=== PATIENT | male | born 1995 | race Caucasian/White ===

== ENCOUNTER 2017-04-27 13:22 | Emergency (ER) | payer BC ==
[~2017-04-27] VITALS: Ht 157.5 cm; Wt 70.0 kg
[2017-04-27 13:24] VITALS: Ht 157.5 cm; Wt 70.0 kg
[2017-04-27] MEDS ORDERED: AMO500 PO (13:37)
[2017-04-27] MEDS ORDERED: TRAM50TA2 PO (13:37)
--- NOTE | 2017-04-27 13:40 | ERD ---
ER Documentation Chief Complaint Date/Time DATE: 04/27/17 TIME: 13:38 Chief Complaint tooth pain x 2 days HPI This patient is a 21-year-old male who presents with dental pain in the front lower teeth. Denies any trauma. No fever. He has not seen a dentist because he states his dentist is in [place]. No difficulty eating drinking or swallowing. Pain is 8 out of 10. ROS All systems reviewed and are negative except as per history of present illness. Medications Home Meds Active Scripts Tramadol HCl (Tramadol HCl) 50 Mg Tablet, 50 MG PO Q6 Y for PAIN, #20 TAB Prov:AZIZA SHEPHERD PA-C 04/27/17 Amoxicillin* (Amoxicillin*) 500 Mg Cap, 500 MG PO BID, #20 CAP Prov:AZIZA SHEPHERD PA-C 04/27/17 FmHx Family History: No diabetes Physical Exam Vitals Vital Signs Date Time Temp Pulse Resp B/P Pulse Ox O2 Delivery O2 Flow Rate FiO2 04/27/17 13:24 98.1 96 18 131/88 99 Physical Exam INITIAL VITAL SIGNS: Reviewed by me GENERAL: Awake, alert and oriented x 4, well appearing, nontoxic, speaking in full sentences. No acute distress HEAD: Atraumatic EYES: EOMI. PERRL. THROAT: No tonilar erythema or edema. No exudates. Uvula midline. No kissing tonsils. NECK: Supple. No masses. Full range of motion. No meningismus. No midline tenderness. RESPIRATORY: Clear to auscultation bilaterally. Symmetric chest wall rise. No wheezing or rales. No accessory muscle use. CV: Regular rate and rhythm. No murmurs, rubs, or gallops. Procedures/MDM Patient has dental pain. Exam is normal and there was no evidence of peritonsillar abscess or any other oral infection. He was given a prescription for amoxicillin and tramadol for pain as well as a referral to dental clinic. Patient counseled regarding my diagnostic impression and care plan. Prior to discharge all questions answered. Pt agrees with treatment plan and understands strict return precautions. Pt is instructed to follow up with primary care provider within 24-48 hours. Precautionary instructions provided including instructions to return to the ER if not improving or for any worsening or changing symptoms or concerns. Departure Diagnosis: Primary Impression: Pain, dental Condition: Stable Patient Instructions: Dental Pain Referrals: [facility] ([facility] walk in [facility]) Additional Instructions: Call your primary care doctor TOMORROW for an appointment during the next 1-2 days.See the doctor sooner or return here if your condition worsens before your appointment time. AZIZA SHEPHERD PA-C Apr 27, 2017 13:40
== END 2017-04-27 14:18 | disposition home or self-care (01) ==
LOC: FTE 13:22
DX: K08.89 Other specified disorders of teeth and supporting structures (principal)
CPT/HCPCS: 99284

== ENCOUNTER 2017-08-12 06:22 | Emergency (ER) | payer BC ==
[~2017-08-12] VITALS: Ht 177.8 cm; Wt 68.0 kg
[~2017-08-12 06:22] MED LIST: AMOX500C2 PO; TRAM50TA2 PO
[2017-08-12 06:30] VITALS: Ht 177.8 cm; Wt 68.0 kg
[2017-08-12] MEDS ORDERED: SOD CHLORIDE 0.9% 1,000 ML IV STA (06:50)
--- NOTE | 2017-08-12 07:29 | RADRPT ---
PROCEDURE: XR Chest. TECHNIQUE: Single frontal radiograph. CLINICAL INDICATION: Chest Pain. COMPARISON: None. FINDINGS: Bibasilar atelectasis without focal consolidation, pneumothorax, or pleural effusions. The heart siz e is within normal limits. IMPRESSION: No acute cardiopulmonary process. RPTAT: EE .Kendell Schumacher MD, MD Date Time Electronically viewed and signed by .Kendell Schumacher MD, MD on 08/12/2017 07:35 .C/
[2017-08-12 07:32] LABS: WHITE BLOOD COUNT 5.4 10^3/ul (4.8-10.8)
[2017-08-12 07:33] LABS: BASOPHILS % 0.4 % (0.0-2.0); EOSINOPHILS % 0.7 % (0.0-7.0); HEMATOCRIT 44.6 % (42.0-52.0); HEMOGLOBIN 15.8 g/dl (14.0-18.0); LYMPHOCYTES # 1.4 10^3/ul (0.8-2.9); LYMPHOCYTES % 26.2 % (15.0-51.0); MEAN CORPUSCULAR HEMOGLOBIN 30.2 pg (29.0-33.0); MEAN CORPUSCULAR HGB CONC 35.4 g/dl (32.0-37.0); MEAN CORPUSCULAR VOLUME 85.1 fl (82.0-101.0); MEAN PLATELET VOLUME 8.9 fl (7.4-10.4); MONOCYTE # 0.2 10^3/ul (0.3-0.9); MONOCYTES % 4.3 % (0.0-11.0); NEUTROPHIL # 3.7 10^3/ul (1.6-7.5); PLATELET COUNT 238 10^3/UL (140-415); RED BLOOD COUNT 5.24 10^6/ul (4.70-6.10)
[2017-08-12 07:58] LABS: MAGNESIUM 1.4 mg/dl (1.7-2.5)
[2017-08-12 07:59] LABS: ANION GAP 14 (8-16); BLOOD UREA NITROGEN 12 mg/dl (7-20); CALCIUM 9.6 mg/dl (8.4-10.2); CARBON DIOXIDE 28 mmol/L (21-31); CHLORIDE 106 mmol/L (97-110); CREATININE 0.98 mg/dl (0.61-1.24); GLUCOSE 110 mg/dl (70-220); POTASSIUM 3.8 mmol/L (3.5-5.1); SODIUM 144 mmol/L (135-144)
[2017-08-12 08:06] LABS: BARBITURATES Negative (NEGATIVE); BENZODIAZEPINES Negative (NEGATIVE); CANNABINOIDS Negative (NEGATIVE); COCAINE Negative (NEGATIVE); OPIATES Negative (NEGATIVE)
[2017-08-12 08:13] LABS: TROPONIN-I < 0.012 ng/ml (0.00-0.12)
[2017-08-12 08:29] LABS: THYROID STIMULATING HORMONE 1.85 MIU/L (0.465-4.680)
[2017-08-12] MEDS ORDERED: MAGNESIUM SULFATE 2 GM/50 ML 50 ML IVPB ONE (08:30)
[2017-08-12] MEDS ORDERED: SOD CHLORIDE 0.9% 100 ML ONE (08:35)
[2017-08-12] MEDS ORDERED: IOHEXOL 100 ML ONE (08:35)
--- NOTE | 2017-08-12 09:22 | RADRPT ---
PROCEDURE: CT angiography of the chest with contrast. CLINICAL INDICATION: Chest pain, palpitations TECHNIQUE: Contrast enhanced angiography of the chest was performed on a high resolution multi det babs scanner during the administration of intravenous contrast. Multiplanar reconstructions, three- dimensional reconstructions, as well as maximal intensity projection images are produced and reviewe d. One or more of the following dose reduction techniques were used: Automated exposure control; Adj ustment of the mA and/or kV according to patient size; Use of iterative reconstruction technique. CT DI = 15, 42 mGy. DLP = 681 mGy-cm. DICOM images are available. CONTRAST: 100 ml Omnipaque 350 administered without adverse event. COMPARISON: Chest radiograph 08/12/2017 FINDINGS: Aorta: Normal caliber and configuration of the thoracic aorta. Heart: Ungated examination demonstrates no significant abnormality. Lung parenchyma: No evidence of airspace or interstitial disease. Airways: Clear; normal caliber and configuration. Pulmonary arteries: Normal caliber. No evidence of central pulmonary emboli. Subsegmental branches a re not well visualized due to patient respiratory motion artifact. Pulmonary veins: Appropriate for phase of enhancement. Mediastinum: No evidence of mass or fluid collection. Lymph nodes: No mediastinal, hilar, or axillary lymphadenopathy. Osseous structures: Intact. Visualized upper abdomen: No abnormalities. IMPRESSION: No evidence of central pulmonary emboli. Subsegmental branches are not well visualized due to patien t respiratory motion artifact. No acute air space infiltrates. RPTAT: AADD .Selvin Hernández MD, MD Date Time Electronically viewed and signed by .Selvin Hernández MD, MD on 08/12/2017 09:21 .B/
--- NOTE | 2017-08-12 09:25 | ERD ---
ER Documentation Chief Complaint Chief Complaint pt bib family with c/o "heart racing and hands cold" denies chest pain HPI Patient is a 21-year-old male with chronic shoulder pain who presents with palpitations. The patient says that both of his hands felt cold approximately 1.5 hours ago. He is not feeling shortness of breath. He says "I am under a lot of stress". He feels that it might be related to stress. He went to another ER 6 months ago for similar type symptoms. He denies leg swelling. He has never had a DVT or pulmonary embolism in the past. He is not a smoker. His primary doctor is Dr. Benson. Upon review of old medical records the patient one previous visit to the emergency department. ROS All systems reviewed and are negative except as per history of present illness. Medications Home Meds Active Scripts Tramadol HCl (Tramadol HCl) 50 Mg Tablet, 50 MG PO Q6 Y for PAIN, #20 TAB Prov:AZIZA SHEPHERD PA-C 04/27/17 Discontinued Scripts Amoxicillin* (Amoxicillin*) 500 Mg Cap, 500 MG PO BID, #20 CAP Prov:AZIZA SHEPHERD PA-C 04/27/17 Allergies Allergies: Coded Allergies: No Known Allergy (Unverified , 04/27/17) PMhx/Soc History of Surgery: Yes (SEVERAL EYE SURGERIES) Anesthesia Reaction: No Hx Neurological Disorder: No Hx Respiratory Disorders: No Hx Cardiac Disorders: No Hx Psychiatric Problems: No Hx Miscellaneous Medical Probl: Yes (R SHOULDER TEAR) Hx Alcohol Use: No Hx Substance Use: No Hx Tobacco Use: No Smoking Status: Never smoker FmHx Family History: No diabetes Physical Exam Vitals Vital Signs Date Time Temp Pulse Resp B/P Pulse Ox O2 Delivery O2 Flow Rate FiO2 08/12/17 07:05 99.0 115 20 150/95 100 Room Air 08/12/17 07:05 Nasal Cannula 1 08/12/17 06:30 98.3 125 18 159/95 99 Physical Exam Const: No acute distress Head: Atraumatic Eyes: Normal Conjunctiva ENT: Normal External Ears, Nose and Mouth. Neck: Full range of motion..~ No meningismus. Resp: Clear to auscultation bilaterally Cardio: Tachycardic rate without murmur Abd: Soft, non tender, non distended. Normal bowel sounds Skin: No petechiae or rashes Back: No midline or flank tenderness Ext: No cyanosis, or edema Neur: Awake and alert Psych: Normal Mood and Affect Result Diagram: 08/12/17 0710 08/12/17 0710 Results 24 hrs Laboratory Tests Test 08/12/17 07:10 08/12/17 07:30 White Blood Count 5.410^3/ul Red Blood Count 5.2410^6/ul Hemoglobin 15.8g/dl Hematocrit 44.6% Mean Corpuscular Volume 85.1fl Mean Corpuscular Hemoglobin 30.2pg Mean Corpuscular Hemoglobin Concent 35.4g/dl Red Cell Distribution Width 12.0% Platelet Count 75613^3/UL Mean Platelet Volume 8.9fl Neutrophils % 68.0% Lymphocytes % 26.2% Monocytes % 4.3% Eosinophils % 0.7% Basophils % 0.4% Nucleated Red Blood Cells % 0.0/100WBC Neutrophils # 3.710^3/ul Lymphocytes # 1.410^3/ul Monocytes # 0.210^3/ul Eosinophils # 0.010^3/ul Basophils # 0.010^3/ul Nucleated Red Blood Cells # 0.010^3/ul Sodium Level 144mmol/L Potassium Level 3.8mmol/L Chloride Level 106mmol/L Carbon Dioxide Level 28mmol/L Anion Gap 14 Blood Urea Nitrogen 12mg/dl Creatinine 0.98mg/dl Glucose Level 110mg/dl Calcium Level 9.6mg/dl Magnesium Level 1.4mg/dl Troponin I < 0.012ng/ml Thyroid Stimulating Hormone (TSH) 1.850MIU/L Free Thyroxine 1.12ng/dl Urine Opiates Screen Negative Urine Barbiturates Negative Urine Amphetamines Screen Negative Urine Benzodiazepines Screen Negative Urine Cocaine Screen Negative Urine Cannabinoids Negative Current Medications Medications (Trade) Dose Ordered Sig/Darlyn Route PRN Reason Start Time Stop Time Status Last Admin Dose Admin Sodium Chloride 1,000 ml @ 1,000 mls/hr Q1H STAT IV 08/12/17 06:50 08/12/17 07:49 DC 08/12/17 07:49 Magnesium Sulfate (Magnesium Sulfate 2 Gm/50 ml) 50 ml @ 25 mls/hr ONCE ONCE IVPB 08/12/17 08:30 08/12/17 10:29 IV Flush 10 ml 10 ml STK-MED ONCE .ROUTE 11/16/17 08:35 08/12/17 08:36 DC 08/12/17 08:59 Sodium Chloride 100 ml @ ud STK-MED ONCE .ROUTE 08/12/17 08:35 08/12/17 08:36 DC 08/12/17 08:59 Iohexol (Omnipaque) 100 ml @ ud STK-MED ONCE .ROUTE 08/12/17 08:35 08/12/17 08:36 DC 08/12/17 09:00 Procedures/MDM EKG read by me: Rate/Rhythm: Sinus tachycardia at a rate of 125 Intervals: Normal Impression: Sinus tachycardia with an S1, Q3, T3 pattern CTA of the chest is negative per radiology. Patient is a 21-year-old male presents with tachycardia and palpitations. The patient's EKG was abnormal showing a possible PE pattern. Therefore the patient had a full workup including laboratory studies, troponin, thyroid studies, and magnesium level done. The patient also had a CTA of the chest to rule out pulmonary embolism. CT of the chest was negative per radiology. There is no sign of pneumonia or pneumothorax either. I doubt acute coronary syndrome or aortic dissection. The patient had low magnesium level of 1.4 which may contribute to palpitations and therefore he was given 2 g of IV magnesium. I believe outpatient management is appropriate at this time. He was given 1 L of normal saline for fluid resuscitation and his heart rate has improved. The patient feels much better. He will be discharged home but will need close follow-up with his primary doctor within 24-48 hours. He was given copies of his laboratory studies and CT scan report prior to discharge. Critical Care: Time: 35 minutes excluding all billable procedures. Treatments/Evaluations: Close monitoring and treatment of unstable vital signs, cardiorespiratory, and neurologic status, while maintaining tight balance of fluid, respiratory, and cardiac interventions. Departure Diagnosis: Primary Impression: Hypomagnesemia Additional Impressions: Palpitations Tachycardia Condition: Fair Patient Instructions: Sinus Tachycardia, Palpitations Additional Instructions: Call your primary care doctor TOMORROW for an appointment during the next 1-2 days.See the doctor sooner or return here if your condition worsens before your appointment time. TEJAL ANDRADE MD Aug 12, 2017 09:25
[2017-08-12] MEDS ORDERED: TRAM50TA2 PO (09:43)
[2017-08-12] MEDS ORDERED: traMADol 50 MG TAB PO ONE (10:00)
[2017-08-12 11:40] VITALS: BP 134/84; PULSE 113; RESP 21; TEMP 98.9
== END 2017-08-12 11:53 | disposition home or self-care (01) ==
LOC: FTE 06:22 → E/R 11:53
DX: E83.42 Hypomagnesemia (principal); R00.2 Palpitations; R40.2142 Coma scale, eyes open, spontaneous, at arrival to emergency department; R40.2252 Coma scale, best verbal response, oriented, at arrival to emergency department; R40.2362 Coma scale, best motor response, obeys commands, at arrival to emergency department
CPT/HCPCS: 36415; 71010; 71275; 80048; 80307; 83735; 84439; 84443; 84484; 85025; 93005; 96361; 96374; J3475; J7030; Q9967; Z7502; Z7610

== ENCOUNTER 2017-09-19 19:23 | Emergency (ER) | END 2017-09-19 21:40 | disposition home or self-care (01) ==